=== PATIENT | male | born 1960 | race Caucasian/White ===

== ENCOUNTER 2021-02-25 03:30 | Observation (INO) ==
[2021-02-25] MEDS ORDERED: SODIUM CHLORIDE 0.9% 500 ML IV STA (03:53)
[2021-02-25] MEDS ORDERED: ONDANSETRON 4 MG/2 ML VIAL IV STA (03:53)
[2021-02-25] MEDS ORDERED: PANTOPRAZOLE 40 MG VIAL IV STA (03:53)
[2021-02-25 05:03] LABS: Basophils % 0.3 % (0.0-0.8); Eosinophils # 0.1 10*3/uL (0.0-0.87); Eosinophils % 0.6 % (0.00-10.9); Hematocrit 34.5 VOL% (42.0-52.0); Hemoglobin 11.8 GM/DL (14.0-18.0); Immature Granulocytes % 0.5 %; Immature Granulocytes Absolute 0.05 #; Lymphocytes % 10.2 % (21.2-54.2); Mean Corpuscular HGB Conc 34.2 GM/DL (32-36); Mean Platelet Volume 9.1 FL (9.6-12.0); Monocytes % 6.9 % (1.7-12.7); Neutrophils % 81.5 % (38.7-73.9); Platelet Count 206 T/CUMM (130-400); Red Blood Count 3.52 MC/CUMM (3.8-5.5); Red Cell Distribution Width 12.7 % (9.3-17.3); White Blood Count 9.6 T/CUMM (4-12)
[2021-02-25 05:11] LABS: INR 1.1; PT Patient Result 12.4 SECS (10.5-12.0)
[2021-02-25 05:33] LABS: Albumin 3.5 G/DL (3.4-5.0); Calcium 8.1 MG/DL (8.5-10.1); Osmolality,Calculated 294.8 MOS/KG (273-304); Potassium 4.2 MMOL/L (3.5-5.1); Total Protein 6.5 G/DL (6.4-8.2)
[2021-02-25] MEDS ORDERED: GLUCAGON 1 MG VIAL IM PRN (06:12)
[2021-02-25] MEDS ORDERED: DOCUSATE SODIUM 100 MG CAPSULE PO PRN (06:12)
[2021-02-25] MEDS ORDERED: ZALEPLON 5 MG CAPSULE PO PRN (06:12)
[2021-02-25] MEDS ORDERED: DEXTROSE 50% 25 GM/50 ML VIAL IV PRN (06:12)
[2021-02-25] MEDS ORDERED: ACETAMINOPHEN 325 MG TABLET PO PRN (06:12)
[2021-02-25] MEDS ORDERED: ONDANSETRON 4 MG/2 ML VIAL IV PRN (06:12)
[2021-02-25] MEDS ORDERED: hydrALAZINE 20 MG/1 ML VIAL IV PRN (06:12)
[2021-02-25] MEDS ORDERED: DEXT 5% NACL 0.9% KCL 40 MEQ 40 MEQ/1,000 ML BAG IV SCH (08:00)
[2021-02-25 09:03] LABS: Hematocrit 36.5 VOL% (42.0-52.0); Hemoglobin 12.6 GM/DL (14.0-18.0)
[2021-02-25] MEDS ORDERED: TEMAZEPAM 15 MG CAPSULE PO PRN (11:46)
[2021-02-25] MEDS: SODIUM CHLORIDE 0.9% 1,000 ML IV SCH ×2 (12:22→23:03)
[2021-02-25] MEDS: PANTOPRAZOLE INJ 200 MG in SODIUM CHLORIDE 0.9% 250 ML IV SCH (12:26)
[2021-02-25 13:54] LABS: Hematocrit 31.4 VOL% (42.0-52.0); Hemoglobin 10.9 GM/DL (14.0-18.0)
[2021-02-25 18:49] LABS: Hematocrit 31.6 VOL% (42.0-52.0)
[2021-02-25] MEDS: TRIAMCINOLONE 0.1% CREAM 15 GM TUBE TOP SCH (20:43)
[2021-02-25] MEDS: ESCITALOPRAM 10 MG TABLET PO SCH (20:43)
[2021-02-25] MEDS: HYDROCORTISONE 2.5% CREAM 30 GM TUBE TOP SCH (20:44)
[2021-02-25] MEDS ORDERED: ATORVASTATIN 20 MG TABLET PO SCH (21:00)
[2021-02-25 21:54] LABS: Hematocrit 30.1 VOL% (42.0-52.0); Hemoglobin 10.3 GM/DL (14.0-18.0)
[2021-02-26 05:35] LABS: Bilirubin,Total 1.4 MG/DL (0.20-1.00); Calcium 8.4 MG/DL (8.5-10.1); Osmolality,Calculated 282.1 MOS/KG (273-304); Potassium 3.6 MMOL/L (3.5-5.1); Total Protein 5.8 G/DL (6.4-8.2)
[2021-02-26 06:13] LABS: Basophils % 0.6 % (0.0-0.8); Eosinophils # 0.1 10*3/uL (0.0-0.87); Hematocrit 30.5 VOL% (42.0-52.0); Hemoglobin 10.6 GM/DL (14.0-18.0); Immature Granulocytes % 0.2 %; Immature Granulocytes Absolute 0.01 #; Lymphocytes # 1.4 10*3/uL (1.4-4.0); Lymphocytes % 29.4 % (21.2-54.2); Mean Corpuscular HGB Conc 34.8 GM/DL (32-36); Mean Corpuscular Volume 97.4 FL (87-102); Mean Platelet Volume 9.2 FL (9.6-12.0); Monocytes % 10.5 % (1.7-12.7); Neutrophils % 56.3 % (38.7-73.9); Platelet Count 162 T/CUMM (130-400); Red Blood Count 3.13 MC/CUMM (3.8-5.5); Red Cell Distribution Width 12.8 % (9.3-17.3); White Blood Count 4.7 T/CUMM (4-12)
[2021-02-26 06:37] LABS: Eosinophils 3 % (0-10); Lymphocytes 23 % (20-55); Platelet Estimate Normal; Segmented Neutrophils 62 % (50-85); Total Cells Counted 100
[2021-02-26] MEDS ORDERED: LACTATED RINGERS 1,000 ML IV SCH (08:00)
[2021-02-26] MEDS ORDERED: amLODIPine 10 MG TABLET PO SCH (09:00)
[2021-02-26] MEDS: ESCITALOPRAM 10 MG TABLET PO SCH (11:02)
[2021-02-26] MEDS: TRIAMCINOLONE 0.1% CREAM 15 GM TUBE TOP SCH (11:02)
[2021-02-26] MEDS: HYDROCORTISONE 2.5% CREAM 30 GM TUBE TOP SCH (11:02)
[2021-02-26 11:09] VITALS: BP 122/79
[2021-02-26] MEDS: SODIUM CHLORIDE 0.9% 1,000 ML IV SCH (12:00)
[2021-02-26] MEDS: PANTOPRAZOLE INJ 200 MG in SODIUM CHLORIDE 0.9% 250 ML IV SCH (12:58)
[2021-02-26] MEDS ORDERED: PANTOPRAZOLE 40 MG TABLET PO SCH (21:00)
== END 2021-02-26 13:25 | disposition home or self-care (01) ==
LOC: SUATTDRO → N.EDINP 03:30 → N.ED 03:30 → N.4E 08:26
PROVIDERS: ADMIT Internal Medicine; ATTEND Internal Medicine